=== PATIENT | female | born 1990 | race Caucasian/White ===

== ENCOUNTER 2016-09-11 00:56 | Inpatient (IN) | payer OTHER ==
[~2016-09-11] VITALS: Ht 167.6 cm; Wt 78.0 kg
[2016-09-11 01:18] VITALS: BP 132/76
[2016-09-11 02:01] LABS: ABSOLUTE BASOPHIL COUNT 0 /CUMM (0.0-0.2); ABSOLUTE EOSINOPHIL COUNT 0.1 /CUMM (0.0-0.7); ABSOLUTE GRANULOCYTE CT 10.1 /CUMM (1.4-6.5); ABSOLUTE LYMPH COUNT 2.1 /CUMM (1.2-3.4); ABSOLUTE MONOCYTE COUNT 0.8 /CUMM (0.10-0.60); BASOPHIL % 0.2 % (0.0-2.0); EOSINOPHIL % 0.7 % (0-5); HEMATOCRIT 36.6 % (37-47); MEAN CORPUSCULAR HGB 31.1 PG (27.0-31.0); MEAN CORPUSCULAR HGB CONC 34.3 G/DL (33.0-37.0); MEAN CORPUSCULAR VOLUME 90.7 FL (81.0-99.0); MEAN PLATELET VOLUME 8.1 FL (7.4-10.4); PLATELET COUNT 260 /CUMM (130-400); RBC DISTRIBUTION WIDTH 12.6 % (11.5-14.5); RED BLOOD CELL CT 4.04 /CUMM (4.20-5.40); WHITE BLOOD CELL COUNT 13.1 /CUMM (4.8-10.8)
--- NOTE | 2016-09-11 05:44 | History & Physical ---
General Information and HPI MD Statement: I have seen and personally examined ROSAS FOURNIER and documented this H&P. The patient is a 26 year old female at [40] weeks and [2] days gestation who presented with a chief complaint of [LOF]. Source of Information: patient Exam Limitations: no limitations History of Present Illness: 26yo, 40 2/7wks, c/o LOF [id number], denies any pain , report+ FM. prental care started at 8+wks, umcomplicated thus far. 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 Home Who Do You Live With? spouse Smoking Status: Current Everyday Smoker ETOH Use: denies use Illicit Drug Use: denies illicit drug use Review of Systems Review of Systems Constitutional: Reports: no symptoms. EENTM: Reports: no symptoms. Cardiovascular: Reports: no symptoms. Respiratory: Reports: no symptoms. GI: Reports: no symptoms. Genitourinary: Reports: see HPI. Musculoskeletal: Reports: no symptoms. Skin: Reports: no symptoms. Neurological/Psychological: Reports: no symptoms. Hematologic/Endocrine: Reports: no symptoms. Immunologic/Allergic: Reports: no symptoms. All Other Systems: Reviewed and Negative Date of LMP: 11/29/15 Post Menopausal: No Exam & Diagnostic Data Last 24 Hrs of Vital Signs/I&O Vital Signs Date Time Temp Pulse Resp B/P B/P Pulse O2 O2 Flow FiO2 Mean Ox Delivery Rate 09/11 0118 132/76 Intake & Output 09/11 0800 09/11 0000 09/10 1600 Intake Total Output Total Balance Patient 78.018 kg Weight Obstetric Exam Wgt Gained During : 43lb Pelvimetry: adequate Dilation (cm): 0 Effacement (%): 60 Station: -2 Membranes: SROM Fluid: clear Fundal Height (cm): 40 Multiple Gestation? No Contractions: no Infant #1 - FHR Baseline: 140 Category: 1 Estimated Weight: 3500g Presentation: vertex Patient for Induction? No Physical Exam: VSS General: NAD Abdomen: gravid, soft,nontender Ext:DCT(-) Labs Blood Type & Rh: A positive Antibody Screen: negative Hct/Hgb & Platelets #1: 13.6/39%,[id number] Hct/Hgb & Platelets #2: 11.6/37%,[id number] Rubella: immune VDRL #1: negative VDRL #2: negative HbsAg: negative HIV #1: negative HIV #2 negative 1 Hr P Group B Strep: negative Initial Ultrasound: IUP at 8+wks Anatomy Ultrasound: normal Genetic Testing: normal Last 24 Hrs of Labs/Tavares: Laboratory Tests 09/11/16 0135: CBC w Diff NO MAN DIFF REQ, RBC 4.04 L, MCV 90.7, MCH 31.1 H, RDW 12.6, MPV 8.1, Gran % 77.0 H, Lymphocytes % 15.7 L, Monocytes % 6.4, Eosinophils % 0.7, Basophils % 0.2, Absolute Granulocytes 10.1 H, Absolute Lymphocytes 2.1, Absolute Monocytes 0.8 H, Absolute Eosinophils 0.1, Absolute Basophils 0, PUBS MCHC 34.3, Urinalysis LIGHT H, Urine Color YEL, Urine Clarity HAZY H, Urine pH 6.5, Ur Specific [place] <= 1.005, Urine Protein NEG, Urine Ketones NEG, Urine Nitrite NEG, Urine Bilirubin NEG, Urine Urobilinogen 0.2, Ur Leukocyte Esterase NEG, Ur Microscopic SEDIMENT EXAMINED, Urine RBC RARE, Ur Epithelial Cells MOD H, Urine Bacteria FEW H, Urine Hemoglobin TRACE-LYSED, Urine Glucose 100 H Assessment/Plan Assessment/Plan: 26yo, 402/7wks, SROM 1. admit pt, admission labs 2. observe for now, if no spontaneous labor onset, may consider IOL 3. pain management as needed As Ranked By This Provider Problem List: 1. 2. SROM (spontaneous rupture of membranes) Core Measures/Miscellaneous Venous Thromboembolism VTE Risk Factors: / VTE Contraindications: No Contraindications VTE Diagnosis: No Beta Dickson Is Beta Dickson a Home Med? No Antibiotics Is Patient on Antibiotics? No
--- NOTE | 2016-09-11 10:57 | PN- OBGYN ---
Surgical Brief Attending Note Brief Attending Note: per pts , stadol now wearing off and pt uncomfortable. VSSAF FHTs 120s cat 1 TOCO q2-3min cervix ?8cm, exam limited by pt discomfort a/p 26 year old @ 40+2 weeks. active labor. s/p stadol. plan epidural. anticipate . Uncomplicated course.
--- NOTE | 2016-09-11 11:13 | PN- OBGYN ---
Surgical Brief Attending Note Brief Attending Note: pt fully dilated. comoftable. with epidural. anticipate .
--- NOTE | 2016-09-11 14:29 | Labor & Delivery Summary ---
Delivery Summary Vaginal Delivery: Vaginal: spontaneous Episiotomy/Lacerations: Episiotomy/Lacerations: 1ST DEGREE AND B/L LABIA; Repair: 3-0 Anesthesia: EPIDURAL AND LOCAL (NESACAINE) Placenta: Placenta: spontanteous, normal, 3 vessel, nuchal cord (x_) (1) Anesthesia: block Baby's Weight: 7 Apgars - 1 Min: 8 Apgars - 5 Min: 9 Additional Comments: PT PROGRESSED TO FULLY DILATED AND PUSHED. WITHOUT COMPLICATION . HEAD DELIVERED WITHOUT DIFFICULTY. NUCHAL CORD REDUCED ON PERINEUM SHOULDERS AND BODY DELIVERED WITHOUT DIFFICULTY. ARM CORD (AROUND WRIST). GOOD CRY NOTED. INFANT DRIED AND STIMULATED AND BULB SUCTIONED. DELAYED CORD CLAMPING X 30 SECONDS. INFANT PLACED ON MATERNAL BELLY. CORD CLAMPED AND CUT AND FURTHER DRIED AND STIMULATED. CORD BLOOD COLLECTION AND TISSUE SAMPLE OBTAINED. CORD BLOOD SENT. PLACENTA DELIVERED WITHOUT DIFFICULTY.1ST DEGREE AND B/L LABIAL LACS REPAIRED WITH LOCAL. PT TOLERATED WELL.
[2016-09-12 08:47] LABS: ABSOLUTE BASOPHIL COUNT 0 /CUMM (0.0-0.2); ABSOLUTE EOSINOPHIL COUNT 0.1 /CUMM (0.0-0.7); ABSOLUTE GRANULOCYTE CT 9.3 /CUMM (1.4-6.5); ABSOLUTE MONOCYTE COUNT 0.9 /CUMM (0.10-0.60); BASOPHIL % 0.4 % (0.0-2.0); EOSINOPHIL % 0.8 % (0-5); GRANULOCYTE % 75.4 % (42.2-75.2); MEAN CORPUSCULAR HGB 30.6 PG (27.0-31.0); MEAN CORPUSCULAR HGB CONC 33.4 G/DL (33.0-37.0); MEAN CORPUSCULAR VOLUME 91.8 FL (81.0-99.0); MEAN PLATELET VOLUME 7.9 FL (7.4-10.4); PLATELET COUNT 219 /CUMM (130-400); RBC DISTRIBUTION WIDTH 12.9 % (11.5-14.5); WHITE BLOOD CELL COUNT 12.3 /CUMM (4.8-10.8)
[2016-09-12 08:50] LABS: HEMATOCRIT 29.4 % (37-47)
--- NOTE | 2016-09-12 09:27 | PN- Post Delivery/GYN ---
Subjective Subjective: feeling well Review of Systems Constitutional: Reports: no symptoms. Denies: chills, fever. EENTM: Denies: blurred vision, double vision, visual changes. Cardiovascular: Denies: edema. Respiratory: Denies: short of breath. Gastrointestinal: Denies: abdominal pain, nausea, vomiting. Genitourinary: Denies: frequency. Neurological/Psychological: Denies: anxiety, depressed. Objective Last 24 Hrs of Vital Signs/I&O vss Physical Exam General Appearance Alert, Oriented X3, Cooperative, No Acute Distress Cardiovascular Regular Rate Lungs Clear to Auscultation Abdomen Soft, fundus firm Pelvic (FEMALE) lochia serosanganous Current Medications: Current Medications Sig/Amaury Start time Last Medication Dose Route Stop Time Status Admin Acetaminophen 650 MG Q4P PRN 09/11 1430 AC PO Butorphanol Tartrate 1 MG Q4P PRN 09/11 0745 AC 09/11 IM 0740 Butorphanol Tartrate 1 MG Q4P PRN 09/11 0745 AC 09/11 IV 0740 Chloroprocaine HCl 30 ML ONCE ONE 09/11 1430 DC 09/11 SC 09/11 1431 1459 Docusate Sodium 100 MG BID PRN 09/11 1430 AC PO Hydroxyzine HCl 50 MG AT BEDTIME NEED.. 09/11 1430 AC PO Hydroxyzine HCl 100 MG AT BEDTIME NEED.. 09/11 0145 AC PO Ibuprofen 800 MG Q6P PRN 09/11 1430 AC 09/12 PO 0838 Lactated Ringer's 1,000 ML Q8H 09/11 0745 AC 09/11 IV 1500 Magnesium Hydroxide 30 ML DAILY PRN 09/11 1430 AC PO Oxytocin 20 UNITS Q5H 09/11 1430 DC 09/11 Lactated Ringer's 1,000 ML IV 09/11 1929 1459 Senna 374 MG AT BEDTIME NEED.. 09/11 1430 AC PO Last 24 Hrs of Labs/Tavares: Laboratory Tests 09/12/16 0700: CBC w Diff NO MAN DIFF REQ, RBC 3.20 L, MCV 91.8, MCH 30.6, RDW 12.9, MPV 7.9, Gran % 75.4 H, Lymphocytes % 16.2 L, Monocytes % 7.2, Eosinophils % 0.8, Basophils % 0.4, Absolute Granulocytes 9.3 H, Absolute Lymphocytes 2.0, Absolute Monocytes 0.9 H, Absolute Eosinophils 0.1, Absolute Basophils 0, PUBS MCHC 33.4 Assessment/Plan Assessment/Plan ppd #1 vss afebrile
[2016-09-13] MEDS ORDERED: IBUPROFEN800 M1 PO (11:12)
--- NOTE | 2016-09-13 11:16 | PN- Post Delivery/GYN ---
Subjective Subjective: feeling well Review of Systems Constitutional: Reports: no symptoms. Denies: chills, fever. EENTM: Denies: blurred vision, double vision, visual changes. Cardiovascular: Reports: edema. Denies: chest pain. Respiratory: Denies: orthopnea, short of breath. Gastrointestinal: Denies: diarrhea, nausea, vomiting. Neurological/Psychological: Denies: anxiety, depressed. Objective Last 24 Hrs of Vital Signs/I&O vss Physical Exam General Appearance Alert, Oriented X3, Cooperative, No Acute Distress Cardiovascular Regular Rate Lungs Clear to Auscultation Abdomen Soft, fundus firm Neurological Normal Gait, Normal Speech Extremities No Clubbing (2+pedal edema) Pelvic (FEMALE) lochia serosanganous Current Medications: Current Medications Sig/Amaury Start time Last Medication Dose Route Stop Time Status Admin Acetaminophen 650 MG Q4P PRN 09/11 1430 AC PO Butorphanol Tartrate 1 MG Q4P PRN 09/11 0745 09/11 IM 0740 Butorphanol Tartrate 1 MG Q4P PRN 09/11 0745 AC 09/11 IV 0740 Docusate Sodium 100 MG BID PRN 09/11 1430 AC PO Hydroxyzine HCl 50 MG AT BEDTIME NEED.. 09/11 1430 AC PO Hydroxyzine HCl 100 MG AT BEDTIME NEED.. 09/11 0145 AC PO Ibuprofen 800 MG .STK-MED ONE 09/12 2225 DC PO 09/12 2226 Ibuprofen 800 MG .STK-MED ONE 09/12 1606 DC PO 09/12 1607 Ibuprofen 800 MG Q6P PRN 09/11 1430 AC 09/13 PO 1000 Lactated Ringer's 1,000 ML Q8H 09/11 0745 AC 09/11 IV 1500 Magnesium Hydroxide 30 ML DAILY PRN 09/11 1430 AC PO Senna 374 MG AT BEDTIME NEED.. 09/11 1430 AC PO Assessment/Plan Assessment/Plan ppd #2 vss afebrile plan D/C home Problem List: 1. SROM (spontaneous rupture of membranes) Attending MD Review Statement Attending Statement Attending MD Statement: examined this patient, discussed with family, discussed with nursing
== END 2016-09-13 11:45 | DRG 560 ==
LOC: CBCO 00:56 → GNO 00:58
PROVIDERS: Obstetrics & Gynecology; ADMIT Obstetrics & Gynecology
DX: O70.0 First degree perineal laceration during delivery (principal); O69.81X0 Labor and delivery complicated by cord around neck, without compression, not applicable or unspecified; O99.334 Smoking (tobacco) complicating childbirth; O69.82X0 Labor and delivery complicated by other cord entanglement, without compression, not applicable or unspecified; Z3A.40 40 weeks gestation of pregnancy; Z37.0 Single live birth
CPT/HCPCS: GNOS; 36415; 81001; J7120